=== PATIENT | female | born 1960 | race Hispanic/Latino ===

== ENCOUNTER 2017-03-18 22:59 | Emergency (ER) | payer BC, SELFPAY ==
[2017-03-18 23:26] LABS: Bilirubin Negative (Negative); Blood, Urine Negative (Negative); Glucose, Urine (Dipstick) Negative (Negative); Ketone, Urine Negative (Negative); Nitrite Negative (Negative); Protein, Urine (Dipstick) Negative (Neg-Trace)
[2017-03-18 23:27] LABS: Bacteria/HPF 1+ HPF (None Seen); Hyaline Casts/LPF 0-3 HYALINE CAST LPF (0-3 Hyaline)
[2017-03-18 23:30] LABS: #Eosinphils 0.5 thou/uL (0.0-0.7); #Lymphocytes 1.5 thou/uL (1.20-3.40); #Monocytes 0.5 thou/uL (0.11-0.59); #Neutrophils 6.9 thou/uL (1.40-6.50); %Basophils 0.4 % (0.0-1.0); %Eosinophils 4.9 % (0.0-10.0); %Lymphocytes 16.1 % (21.0-51.0); %Monocytes 5.7 % (0.0-10.0); Hematocrit 36.4 % (36.0-47.0); Mean Platelet Volume 7.9 fL (7.4-10.4); Red Blood Cell (RBC) Count 4.08 mill/uL (4.20-5.40); White Blood Cell (WBC) Count 9.5 thou/uL (4.8-10.8)
[2017-03-18 23:51] LABS: ALT (SGPT) 14 U/L (8-55); AST (SGOT) 18 U/L (5-34); Alkaline Phosphatase 67 U/L (40-150); Anion Gap 13 mmol/L (10-20); BUN (Urea Nitrogen) 12 mg/dL (9.8-20.1); Bilirubin, Total 0.5 mg/dL (0.2-1.2); Calc. Creatinine Clearance 0 mL/min (70-130); Calcium 9.2 mg/dL (7.8-10.44); Carbon Dioxide 27 mmol/L (22-29); Chloride 103 mmol/L (98-107); Estimated GFR-MDRD 79; Globulin 3.3 g/dL (2.4-3.5); Lipase 9 U/L (8-78); Protein, Total 7.3 g/dL (6.0-8.3)
[2017-03-19] MEDS ORDERED: Phenazopyridine HCl 97.5 MG TABLET PO SCH (02:15)
[2017-03-19] MEDS ORDERED: Phenazopyridine HCl 97.5 MG TABLET ONE (02:21)
== END 2017-03-19 02:29 | disposition home or self-care (01) ==
LOC: ERS 22:59
DX: N39.0 Urinary tract infection, site not specified (principal); I10 Essential (primary) hypertension
CPT/HCPCS: 36415; 80053; 81003; 81015; 83690; 85025; 99283

== ENCOUNTER 2017-07-30 14:03 | Inpatient (IN) | payer BC, SELFPAY ==
[2017-07-30 14:33] LABS: #Lymphocytes 0.7 thou/uL (1.20-3.40); #Monocytes 0.2 thou/uL (0.11-0.59); #Neutrophils 9.2 thou/uL (1.40-6.50); %Eosinophils 0.2 % (0.0-10.0); %Lymphocytes 7.1 % (21.0-51.0); %Monocytes 2.2 % (0.0-10.0); %Neutrophils 90.5 % (42.0-75.0); Hemoglobin 12.2 g/dL (12.0-16.0); Mean Corpuscular HGB CONC 32.1 g/dL (32.0-36.0); Mean Corpuscular Hemoglobin 28.8 pg (27.0-31.0); Mean Corpuscular Volume 89.6 fl (81.0-99.0); Mean Platelet Volume 8.2 fL (7.4-10.4); Platelet Count 277 thou/uL (130-400); RBC Distribution Width 11.9 % (11.5-14.5); Red Blood Cell (RBC) Count 4.24 mill/uL (4.20-5.40); White Blood Cell (WBC) Count 10.1 thou/uL (4.8-10.8)
[2017-07-30 14:54] LABS: ALT (SGPT) 14 U/L (8-55); AST (SGOT) 18 U/L (5-34); Albumin 4.1 g/dL (3.5-5.0); Alkaline Phosphatase 65 U/L (40-150); Anion Gap 12 mmol/L (10-20); BUN (Urea Nitrogen) 12 mg/dL (9.8-20.1); Bilirubin, Total 0.7 mg/dL (0.2-1.2); Calc. Creatinine Clearance 0 mL/min (70-130); Calcium 9.3 mg/dL (7.8-10.44); Carbon Dioxide 27 mmol/L (22-29); Chloride 100 mmol/L (98-107); Estimated GFR-MDRD Greater than 90; Globulin 2.9 g/dL (2.4-3.5); Glucose 112 mg/dL (70-105); Potassium 3.9 mmol/L (3.5-5.1); Sodium 135 mmol/L (136-145)
[2017-07-30 15:49] LABS: Bilirubin Negative (Negative); Blood, Urine Negative (Negative); Clarity CLEAR (Clear); Glucose, Urine (Dipstick) Negative (Negative); Leukocyte Negative (Negative); Nitrite Negative (Negative); Protein, Urine (Dipstick) Negative (Neg-Trace); Specific Gravity, Urine 1.014 (1.002-1.036)
[2017-07-30] MEDS ORDERED: ISOVUE-370 76%-LOCM 1 ML ONE (16:40)
--- NOTE | 2017-07-30 21:15 | CT ---
CT OF ABDOMEN AND PELVIS PERFORMED WITH INTRAVENOUS CONTRAST ENHANCEMENT: 07/30/17 HISTORY: Right lower quadrant abdomen pain. The lung bases are clear. There is a large hiatal hernia present. The liver, spleen, and pancreas regions appear unremarkable. Gallbladder has been removed. Right and left adrenal glands and right and left kidneys are normal in size. There is no significant periaortic or mesenteric adenopathy. CT OF PELVIS PERFORMED WITH CONTRAST ENHANCEMENT: The appendix is enlarged. There is some focally dilated small bowel adjacent to this area. This is pr obably related to some localized ileus type effect. There is trace free fluid in the cul-de-sac. Ther e is no abscess formation. IMPRESSION: CT findings compatible with appendicitis. There is some trace free fluid in the cul-de-sac region. POS: [facility]
[2017-07-30] MEDS ORDERED: Ampicillin/Sulbactam 3 GM in Sodium Chloride 0.9% 100 ML IVPB SCH (23:00)
[2017-07-31 00:19] VITALS: BMI 37.1
[2017-07-31] MEDS ORDERED: Ondansetron HCl/PF 4 MG/2 ML Vial IVP PRN ×3 (00:19→12:33)
[2017-07-31] MEDS ORDERED: Ondansetron ODT 4 MG TAB SL PRN (00:19)
[2017-07-31] MEDS: Sodium Chloride 0.45% 1,000 ML IV SCH ×2 (00:30→15:51)
[2017-07-31] MEDS: Fentanyl 100 MCG/2 ML VIAL SLOW IVP PRN ×2 (01:14→08:35)
--- NOTE | 2017-07-31 02:43 | CON-2 ---
DATE OF CONSULTATION: 07/31/2017 CODE STATUS: FULL CODE. PRIMARY CARE PHYSICIAN: Dr. Rosales Beyer. ATTENDING: Dr. Awan. RESIDENT: Dr. Rosales Newman. CHIEF COMPLAINT: Right lower quadrant abdominal pain. HISTORY OF PRESENT ILLNESS: This is a Turkish speaking 57-year-old female who initially presented to the ER earlier tonight for evaluation of worsening right lower quadrant abdominal pain that started at 0300 earlier that morning on 07/30/2017 with associated nausea and vomiting, emesis x1. While in the ER, patient was found to be afebrile without a white count. CT abdomen and pelvis was obtained s howing inflammation of the appendix consistent with appendicitis. At this time, she was started on U nasyn, given 2 mg morphine and 1 liter normal saline before being admitted by General Surgery with pl ans for appendectomy tomorrow morning. Patient does have a past medical history of arthritis and hyp ertension, which per records showing a systolic ranging 110s to 120s/60s to 80s over her last multipl e clinic visits on lisinopril/HCTZ 20/25 mg, respectively. Patient denies any headache, blurry visio n, chest pain, shortness of breath. She is unsure if she took her blood pressure medication this mor radha secondary to the abdominal pain associated nausea, vomiting. In the ER, patient received 3 gram s Unasyn, 2 mg morphine, and 1 liter normal saline. PAST MEDICAL HISTORY: 1. Hypertension. 2. Urge incontinence. 3. Obesity. 4. Arthritis. PAST SURGICAL HISTORY: 1. Cholecystectomy. 2. Hysterectomy. 3. Bilateral tubal ligation. ALLERGIES: No known drug allergies. MEDICATIONS: 1. Lisinopril/HCTZ 20/25 mg p.o. q. day. 2. Aspirin 81 mg p.o. q. day. FAMILY HISTORY: Noncontributory. SOCIAL HISTORY: Patient denies any tobacco, alcohol, or IV drug use. REVIEW OF SYSTEMS: General: Denies any fevers or chills. Eyes: Denies any eye pain. ENT: Denies any sore throat. Respiratory: Denies any cough, shortness breath. Cardiovascular: Denies any dov st pain. GI: Endorses nausea, vomiting, and abdominal pain. See HPI. Genitourinary: Endorses inc ontinence. See past medical history. Skin: Denies any rashes. Musculoskeletal: Denies any stiffn ess. Endorses arthritis. Neurologic: Denies any weakness, syncope. Psychiatric: Denies anxiety, depression. PHYSICAL EXAMINATION: VITAL SIGNS: Blood pressure 152/84, pulse 63, respiratory rate 18, T-max 98.3 degrees Fahrenheit, pu lse ox 98% on room air, weight current 83.5 kilos. GENERAL: Alert and oriented x3. NAD. Obese, appropriately interactive. HEENT: PERRLA, EOMI. Conjunctivae within normal limits. ENT: Nasal mucosa and oropharynx within normal limits. NECK: Supple, no cervical lymphadenopathy, no thyromegaly, no bruits. HEART: Regular. No murmur, no gallops, 2+ radial and pedal pulses bilaterally. RESPIRATORY: Normal respiratory effort, no retractions. Clear to auscultation bilaterally. SKIN: Warm, dry, and intact. No cyanosis. No lesions. ABDOMEN: Soft, nontender to palpation diffusely greater right lower quadrant without guarding or carolynn ound tenderness. Bowel sounds normoactive. No masses or distention. EXTREMITIES: No clubbing, no cyanosis, edema. MUSCULOSKELETAL: Structure within normal limits. Tone within normal limits, 5/5 strength, full rang e of motion. NEUROLOGICAL: No focal deficits. Sensation within normal limits. Cranial nerves II-XII intact bila terally. PSYCH: Appropriate mood and affect. LABORATORY DATA: White blood cell 10.1, hemoglobin 12.2, hematocrit 38.0, platelets 277. Sodium 135 , potassium 3.9, chloride 100, bicarbonate 27, BUN 12, creatinine 0.66, glucose 112. Albumin 4.1, to luan protein 7.0, total bilirubin 0.7, calcium 9.2, AST 18, ALT 14, alkaline phosphatase 65, lipase 4. IMAGING: CT abdomen and pelvis showing inflammation of the appendix consistent with appendicitis. ASSESSMENT AND PLAN: A 57-year-old female with: 1. Acute appendicitis. - Patient started on Unasyn. Continue this per General Surgery with plans for appendectomy in the orning. Continue on n.p.o. status until this time. - Pain control per General Surgery. 2. Essential hypertension. - Patient very well controlled on home blood pressure medication regimen of lisinopril/HCTZ slightly elevated pressures asymptomatic. Likely, secondary to not taking medication this morning as well as the pain associated with: 1. Restart home medications. 2. Arthritis. - Patient taking ibuprofen at home for this per clinic notes. We will plan on patient restarting th is once postop pain medications per general surgeon have been discontinued. DISPOSITION AND LENGTH OF HOSPITAL STAY: Likely less than 2 midnights. Pending postop recovery. Melanie harris per General Surgery. History and physical exam as well as management for this consultation was discussed with Dr. Awan.
[2017-07-31] MEDS: Ampicillin/Sulbactam 3 GM in Sodium Chloride 0.9% 100 ML IVPB SCH ×2 (07:28→13:00)
[2017-07-31] MEDS ORDERED: cefOXitin 2 GM in Sodium Chloride 0.9% 100 ML IVPB SCH (07:45)
--- NOTE | 2017-07-31 07:45 | HP ---
CHIEF COMPLAINT: Right lower quadrant abdominal pain. HISTORY OF PRESENT ILLNESS: This is a 57-year-old female with a 24-hour history of right-sided abdom inal pain associated with nausea, vomiting, no fever. PAST MEDICAL HISTORY: Hypertension. PAST SURGICAL HISTORY: Hysterectomy. MEDICATIONS: Lisinopril. ALLERGIES: No known drug allergies. SOCIAL HISTORY: She is . She works in the kitchen of a restaurant. No tobacco or alcohol. FAMILY HISTORY: Noncontributory. PHYSICAL EXAMINATION: VITAL SIGNS: Temperature 99.1, pulse 67, blood pressure 119/75. GENERAL: She is an obese female, lying still. HEENT: Unremarkable. LUNGS: Clear. HEART: Regular rate and rhythm. ABDOMEN: Tender to percussion in the right lower quadrant, no palpable masses. EXTREMITIES: Unremarkable. LABORATORY AND X-RAY FINDINGS: White count 10.1, H and H 12 and 38, platelet count 277. Electrolyte s fine. LFTs normal. CT scan shows appendicitis. ASSESSMENT: Acute appendicitis. PLAN: Laparoscopic appendectomy. CONSENT: I have discussed the planned procedure as well as risk of bleeding, infection, injury to ileana wel, bladder, need to open. She understands and gives informed consent.
[2017-07-31] MEDS ORDERED: cefOXitin 2 GM, Syringe 1 ML in Sterile Water 10 ML SLOW IVP SCH (08:00)
[2017-07-31] MEDS ORDERED: Bupivacaine 0.25% HCL 30 ML VIAL ONE (10:52)
[2017-07-31] MEDS ORDERED: Fentanyl 100 MCG/2 ML VIAL ONE (11:13)
[2017-07-31] MEDS ORDERED: HYDROmorphone 0.5 MG/0.5 ML SYRINGE ONE (11:13)
[2017-07-31] MEDS ORDERED: Promethazine HCl 25 MG/ML VIAL IM PRN ×2 (12:24→12:33)
[2017-07-31] MEDS ORDERED: Morphine 5 MG/ML SYRINGE SLOW IVP PRN (12:24)
[2017-07-31] MEDS ORDERED: HYDROcodone/Acetaminophen 10/325 mg Tablet PO PRN ×2 (12:24)
[2017-07-31] MEDS ORDERED: Dextrose 5% in Water 1,000 ML IV PRN (12:24)
[2017-07-31] MEDS ORDERED: hydrALAZINE 20 MG/ML VIAL SLOW IVP PRN (12:24)
[2017-07-31] MEDS ORDERED: Dextrose 50% Abboject 50 ML SYRINGE SLOW IVP PRN (12:24)
[2017-07-31] MEDS ORDERED: Promethazine HCl 25 MG/ML VIAL SLOW IVP PRN (12:33)
[2017-07-31] MEDS ORDERED: HYDROmorphone 2 MG/ML VIAL SLOW IVP PRN (12:33)
[2017-07-31] MEDS ORDERED: Succinylcholine Chloride 20 MG/ML 10 ml SYRINGE FS ONE (14:34)
[2017-07-31] MEDS ORDERED: Ketorolac Tromethamine 30 MG/ML VIAL ONE (14:34)
[2017-07-31] MEDS ORDERED: ePHEDrine/0.9% NaCl/PF SYRINGE 50 mg/10 ml ONE (14:34)
[2017-07-31] MEDS ORDERED: Ondansetron HCl/PF 4 MG/2 ML Vial ONE (14:34)
[2017-07-31] MEDS ORDERED: Dexamethasone 20 MG/5 ML VIAL ONE (14:34)
[2017-07-31] MEDS ORDERED: Propofol 200 MG/20 ML VIAL ONE (14:34)
[2017-07-31] MEDS ORDERED: Glycopyrrolate 0.2 MG/ML 5 ML SYRINGE ONE (14:34)
[2017-07-31] MEDS ORDERED: PHENYLEPHRINE-NS 100 MCG/ML 10 ML SYRINGE ONE (14:34)
[2017-07-31] MEDS ORDERED: Lidocaine 1% PF 5 ML VIAL ONE (14:34)
[2017-07-31] MEDS: Lisinopril/Hydrochlorothiazide 20/25 mg Tablet PO SCH (15:01)
--- NOTE | 2017-07-31 15:17 | OP ---
PREOPERATIVE DIAGNOSIS: Acute appendicitis. SURGEON: Jeff Mcdonald M.D. PROCEDURE PERFORMED: Laparoscopic appendectomy and drainage of periappendiceal abscess. INDICATIONS: This is a 57-year-old female who presented with a 24-hour history of right lower quadra nt abdominal pain associated with nausea and vomiting. No fever. She had a CT scan that showed appe ndicitis. FINDINGS: Acute appendicitis, ruptured with periappendiceal abscess. PROCEDURE IN DETAIL: After informed consent was obtained, the patient was taken to the operating enoch m and given general endotracheal anesthesia. She was placed in the supine position. Her abdomen was prepped and draped in the usual fashion. Local anesthesia infiltrated subcutaneously and deep, and a subumbilical incision was performed. The subcu divided sharply. The fascia grasped and two stay s utures of 0 Vicryl placed to either side of midline. Midline incised. Digital palpation revealed no local adhesions. A blunt 10/12 mm trocar inserted. Pneumoperitoneum was created to a pressure of 1 5 mmHg. A 0 degree laparoscope inserted. Under direct vision, two 5-mm ports were placed, one supra pubic and one right lateral abdomen. The appendix was grasped and there was a collection of purulent fluid around it. This was suctioned and some of it was retained for culture. The mesoappendix was divided utilizing the LigaSure. The base of the appendix was then divided utilizing the linear 45 mm white load stapler. The appendix was placed in an Endosac and removed from the abdomen in the Endos ac. Hemostasis was assured. The pelvis was thoroughly irrigated and irrigation fluid removed. The periappendiceal abscess was completely drained. Hemostasis assured. A drain was placed and brought through a separate stab wound in the suprapubic area, placed in the pelvis and along the right side. Hemostasis was assured. Trocars and retractors removed. The fascia closed with interrupted 0 Vicry l sutures. Skin closed with interrupted 4-0 Rapide. Dermabond applied. The patient tolerated the p rocedure well and transferred to recovery in good condition. Sponge and needle count verified [facility] t x2.
[2017-07-31] MEDS: Piperacillin/Tazobactam 3.375 GM in Sodium Chloride 0.9% 100 ML IVPB SCH (17:53)
[2017-07-31] MEDS: Ketorolac Tromethamine 30 MG/ML VIAL IVP SCH (17:53)
[2017-07-31] MEDS: D5 1/2 NS w/20 mEq KCL 1,000 ML IV SCH (18:02)
[2017-07-31] MEDS: Famotidine 20 MG TAB PO SCH (20:01)
[2017-07-31] MEDS: Famotidine/PF 20 mg/2ml Vial SLOW IVP SCH (21:31)
[2017-08-01] MEDS: Piperacillin/Tazobactam 3.375 GM in Sodium Chloride 0.9% 100 ML IVPB SCH ×3 (00:57→12:45)
[2017-08-01] MEDS: Ketorolac Tromethamine 30 MG/ML VIAL IVP SCH ×3 (00:57→12:46)
[2017-08-01] MEDS: D5 1/2 NS w/20 mEq KCL 1,000 ML IV SCH (04:41)
[2017-08-01 04:51] LABS: #Lymphocytes 0.6 thou/uL (1.20-3.40); #Monocytes 0.5 thou/uL (0.11-0.59); #Neutrophils 7.3 thou/uL (1.40-6.50); %Basophils 0.3 % (0.0-1.0); %Eosinophils 0.1 % (0.0-10.0); %Lymphocytes 7.3 % (21.0-51.0); %Monocytes 6.4 % (0.0-10.0); %Neutrophils 85.9 % (42.0-75.0); Hemoglobin 10.4 g/dL (12.0-16.0); Mean Corpuscular HGB CONC 32.6 g/dL (32.0-36.0); Mean Corpuscular Hemoglobin 29.3 pg (27.0-31.0); Mean Corpuscular Volume 89.9 fl (81.0-99.0); Mean Platelet Volume 8.8 fL (7.4-10.4); Platelet Count 224 thou/uL (130-400); RBC Distribution Width 11.9 % (11.5-14.5); Red Blood Cell (RBC) Count 3.56 mill/uL (4.20-5.40); White Blood Cell (WBC) Count 8.5 thou/uL (4.8-10.8)
[2017-08-01 04:59] LABS: Anion Gap 10 mmol/L (10-20); BUN (Urea Nitrogen) 8 mg/dL (9.8-20.1); Calc. Creatinine Clearance 121 mL/min (70-130); Calcium 8.5 mg/dL (7.8-10.44); Carbon Dioxide 26 mmol/L (22-29); Chloride 106 mmol/L (98-107); Estimated GFR-MDRD 90; Glucose 167 mg/dL (70-105); Sodium 138 mmol/L (136-145)
[2017-08-01] MEDS: Famotidine/PF 20 mg/2ml Vial SLOW IVP SCH (08:43)
[2017-08-01] MEDS: Famotidine 20 MG TAB PO SCH (08:43)
[2017-08-01] MEDS: Lisinopril/Hydrochlorothiazide 20/25 mg Tablet PO SCH (08:44)
[2017-08-01] MEDS ORDERED: Enoxaparin Sodium 40 MG/0.4 ML SYRINGE SC SCH (09:00)
[2017-08-01 12:28] VITALS: BP 121/75; TEMP 98
--- NOTE | 2017-08-01 21:06 | DIS ---
DISCHARGE DIAGNOSIS: Acute appendicitis with periappendiceal abscess. PROCEDURES DURING ADMISSION: Laparoscopic appendectomy and drainage of abscess. HOSPITAL COURSE: Patient was admitted, taken to the operating room after given IV antibiotics. She underwent a laparoscopic appendectomy. She was found to have a locally ruptured appendicitis with pe riappendiceal abscess. A drain was placed. Postoperatively, she has done well. Minimal output on t he drain. She is afebrile, tolerating liquids. She is discharged home afebrile on hydrocodone, Zofr an, and doxycycline. She will follow up with me in 2 weeks.
== END 2017-08-01 14:25 | disposition home or self-care (01) | DRG 340 ==
LOC: ERS 14:03 → OBSVTOIN 23:58 → SURG A 23:58
PROVIDERS: ADMIT Surgery; ATTEND Surgery
PROC: 0DTJ4ZZ Resection of Appendix, Percutaneous Endoscopic Approach (ICD-10-PCS; principal; 2017-07-30)
PROC: 0D9J4ZZ Drainage of Appendix, Percutaneous Endoscopic Approach (ICD-10-PCS; 2017-07-30)
DX: K35.2 Acute appendicitis with generalized peritonitis (principal); E66.9 Obesity, unspecified; I10 Essential (primary) hypertension; K35.3 Acute appendicitis with localized peritonitis; M19.90 Unspecified osteoarthritis, unspecified site; Z79.82 Long term (current) use of aspirin
CPT/HCPCS: 36415; 74177; 80048; 80053; 81003; 83690; 83735; 85025; 87070; 87077; 87086; 87186; 87205; 88304; 96361; 96365; 96375; J2270; A4216; J0295; J0694; J1100; J1170; J1650; J1885; J2001; J2405; J2543; J2704; J3010; J7050; S0020; S0028

== ENCOUNTER 2017-10-11 10:17 | Outpatient (CLI) | payer OTHER ==
--- NOTE | 2017-10-18 13:54 | MMO ---
MAMMOGRAM DIGITAL SCREENING BILATERAL: DATE: 10/11/17 HISTORY: 57-year-old female for routine bilateral screening mammogram. COMPARISON: 03/15/15, 03/16/16. TECHNIQUE: Digital mammographic views. Computer-aided detection (CAD) utilized. FINDINGS: There are scattered areas of fibroglandular density. There is no evidence of suspicious mass, suspicious calcifications, or architectural distortion. IMPRESSION: 1. BIRADS 1 - Negative. 2. Recommendation: routine bilateral annual screening mammogram (unless the patient develops suspici ous clinical findings that would warrant earlier imaging follow up). areli [] POS: [facility]
== END 2017-10-11 10:18 | disposition home or self-care (01) ==
LOC: SCSMAMMO 10:17
PROVIDERS: ATTEND Emergency Medicine
DX: Z12.31 Encounter for screening mammogram for malignant neoplasm of breast (principal)
CPT/HCPCS: 77067

== ENCOUNTER 2018-10-12 09:09 | Outpatient (CLI) | payer OTHER ==
--- NOTE | 2018-10-12 12:03 | MMO ---
Bilateral MAMMO Bilat Screen DDI. CLINICAL HISTORY: Patient is 58 years old and is seen for screening. The patient has the following family history of breast cancer: cousin female, at age 52. The patient has no personal history of cancer. VIEWS: The views performed were: bilateral craniocaudal and bilateral mediolateral oblique. FILMS COMPARED: The present examination has been compared to prior imaging studies performed at [facility] on 10/11/2017, and at [facility] on 03/06/2005, 04/07/2007, 04/13/2008, 05/28/2009, 06/27/2010, 08/03/2011 and 08/05/2012. This study has been interpreted with the assistance of computer-aided detection. MAMMOGRAM FINDINGS: The breasts are heterogeneously dense, which could obscure a lesion on mammography. Finding 1: There are stable benign appearing densities seen in both breasts. Finding 2: There are stable benign appearing calcifications seen in both breasts. There are no suspicious masses, suspicious calcifications, or new areas of architectural distortion. IMPRESSION: THERE IS NO MAMMOGRAPHIC EVIDENCE OF MALIGNANCY. A ROUTINE FOLLOW-UP MAMMOGRAM IN 1 YEAR IS RECOMMENDED. ACR BI-RADS Category 2 - Benign finding MAMMOGRAPHY NOTE: 1. A negative mammogram report should not delay a biopsy if a dominant of clinically suspicious mass is present. 2. Approximately 10% to 15% of breast cancers are not detected by mammography. 3. Adenosis and dense breasts may obscure an underlying neoplasm.
== END 2018-10-12 09:10 | disposition home or self-care (01) ==
LOC: SCSMAMMO 09:09
PROVIDERS: ATTEND Emergency Medicine
DX: Z12.31 Encounter for screening mammogram for malignant neoplasm of breast (principal); Z80.3 Family history of malignant neoplasm of breast
CPT/HCPCS: 77067

== ENCOUNTER 2018-12-10 14:46 | Emergency (ER) | payer OTHER ==
[2018-12-10] MEDS ORDERED: Ketorolac Tromethamine 30 MG/ML VIAL ONE (15:33)
--- NOTE | 2018-12-10 15:40 | RAD ---
EXAM: XR Hip Lt 2-3 View PROVIDED CLINICAL HISTORY: Pain FINDINGS: Evaluation is limited by patient body habitus. There is no evidence for fracture or other acute osseo us abnormality. Alignment appears anatomic. Joint spaces appear preserved. IMPRESSION: No evidence for an acute osseous abnormality. If there is persistent clinical concern, conservative m anagement and follow-up imaging advised.
--- NOTE | 2018-12-10 15:41 | RAD ---
EXAM: XR Knee Lt 4 View STANDARD PROVIDED CLINICAL HISTORY: Pain FINDINGS: There is no evidence for fracture or other acute osseous abnormality. Alignment appears anatomic. Kassandra nt spaces appear preserved. Osteophyte formation is seen at the medial femorotibial joint. IMPRESSION: No evidence for an acute osseous abnormality. If there is persistent clinical concern, conservative m anagement and follow-up imaging advised.
== END 2018-12-10 16:26 | disposition home or self-care (01) ==
LOC: ERS 14:46
DX: M25.562 Pain in left knee (principal); M25.552 Pain in left hip; I10 Essential (primary) hypertension; F41.9 Anxiety disorder, unspecified; Z79.899 Other long term (current) drug therapy; W19.XXXA Unspecified fall, initial encounter; Y92.512 Supermarket, store or market as the place of occurrence of the external cause
CPT/HCPCS: 96372; J1885

== ENCOUNTER 2019-10-19 10:48 | Outpatient (CLI) | payer OTHER ==
--- NOTE | 2019-10-19 11:26 | MMO ---
Bilateral MAMMO Bilat Screen DDI+PING. CLINICAL HISTORY: Patient is 59 years old and is seen for screening. The patient has the following family history of breast cancer: cousin female, at age 52. The patient has no personal history of cancer. VIEWS: The views performed were: bilateral craniocaudal; bilateral craniocaudal with tomosynthesis; and bilateral mediolateral oblique with tomosynthesis. FILMS COMPARED: The present examination has been compared to prior imaging studies performed at [facility] on 10/11/2017 and 10/12/2018. This study has been interpreted with the assistance of computer-aided detection. MAMMOGRAM FINDINGS: Finding 1: There are stable benign appearing densities seen in both breasts. Finding 2: There are stable benign appearing calcifications seen in both breasts. There are no suspicious masses, suspicious calcifications, or new areas of architectural distortion. IMPRESSION: THERE IS NO MAMMOGRAPHIC EVIDENCE OF MALIGNANCY. A ROUTINE FOLLOW-UP MAMMOGRAM IN 1 YEAR IS RECOMMENDED. THE RESULTS OF THIS EXAM WERE SENT TO THE PATIENT. ACR BI-RADS Category 2 - Benign finding MAMMOGRAPHY NOTE: 1. A negative mammogram report should not delay a biopsy if a dominant of clinically suspicious mass is present. 2. Approximately 10% to 15% of breast cancers are not detected by mammography. 3. Adenosis and dense breasts may obscure an underlying neoplasm. Reported by: Eduardo STEVE Electonically Signed: [id number]
== END 2019-10-19 10:49 | disposition home or self-care (01) ==
LOC: BICMAMMO 10:48
PROVIDERS: ATTEND Emergency Medicine
DX: Z12.31 Encounter for screening mammogram for malignant neoplasm of breast (principal); Z80.3 Family history of malignant neoplasm of breast
CPT/HCPCS: 77063; 77067

== ENCOUNTER 2021-08-26 08:48 | Outpatient (CLI) | payer OTHER | END 2021-08-26 08:49 | disposition home or self-care (01) | LOC: BICMAMMO 08:48 | PROVIDERS: ATTEND Emergency Medicine | DX: Z12.31 Encounter for screening mammogram for malignant neoplasm of breast (principal); Z80.3 Family history of malignant neoplasm of breast | CPT/HCPCS: 77063; 77067 ==

== ENCOUNTER 2024-06-01 07:30 | Outpatient (CLI) | payer OTHER | END 2024-06-01 07:31 | disposition home or self-care (01) | LOC: BICMRI 07:30 | PROVIDERS: ATTEND Emergency Medicine | DX: M54.32 Sciatica, left side (principal); M48.061 Spinal stenosis, lumbar region without neurogenic claudication; M48.07 Spinal stenosis, lumbosacral region; M47.817 Spondylosis without myelopathy or radiculopathy, lumbosacral region; M47.814 Spondylosis without myelopathy or radiculopathy, thoracic region; M48.04 Spinal stenosis, thoracic region; M47.816 Spondylosis without myelopathy or radiculopathy, lumbar region | CPT/HCPCS: 72148 ==

== ENCOUNTER 2025-01-08 06:59 | Inpatient (IN) | payer OTHER ==
[2025-01-08] MEDS ORDERED: Thrombin 5000 UNITS/5 ML VIAL ONE (07:26)
[2025-01-08] MEDS ORDERED: fentaNYL PF 100 MCG/2 ML SYRINGE ONE (07:35)
[2025-01-08] MEDS ORDERED: CEFAZOLIN 2 GM VIAL ONE (08:00)
[2025-01-08] MEDS ORDERED: Lidocaine 1% PF 5 ML VIAL ONE (08:33)
[2025-01-08] MEDS ORDERED: Rocuronium Bromide 10 MG/ML (10ML VIAL) ONE (08:33)
[2025-01-08] MEDS ORDERED: Albuterol HFA (OR) 200 PUFF INH ONE (08:33)
[2025-01-08] MEDS ORDERED: PROPOFOL 200 MG/20 ML VIAL ONE (08:33)
[2025-01-08] MEDS ORDERED: Ketamine In 0.9 % NaCl 50 MG/5 ML SYRINGE ONE (08:46)
[2025-01-08] MEDS ORDERED: Ondansetron PF 4 MG/2 ML Vial ONE (08:50)
[2025-01-08] MEDS ORDERED: SUGAMMADEX SODIUM 200 MG/2 ML VIAL ONE ×2 (08:50→10:10)
[2025-01-08] MEDS ORDERED: PROPOFOL 20 ML ONE (09:27)
[2025-01-08] MEDS ORDERED: HYDROmorphone 2 MG/ML VIAL ONE (09:36)
[2025-01-08] MEDS ORDERED: HYDROcodone/Acetaminophen 5/325 mg Tablet ONE (12:05)
[2025-01-08] MEDS ORDERED: diphenhydrAMINE 50 MG/ML VIAL IVP PRN (13:32)
[2025-01-08] MEDS: metFORMIN 500 MG TAB PO SCH (16:39)
[2025-01-08] MEDS: Ketorolac Tromethamine 30 MG (1 mL) VIAL IVP SCH (16:39)
[2025-01-08] MEDS: Ondansetron PF 4 MG/2 ML Vial IVP PRN (18:25)
[2025-01-08 18:32] VITALS: BMI 42.0
[2025-01-09] MEDS: Lisinopril 20 MG TAB PO SCH (08:55)
[2025-01-09] MEDS: HYDROcodone/Acetaminophen 10/325 mg Tablet PO PRN ×2 (12:23→23:25)
[2025-01-11] MEDS: Acetaminophen 325 MG TAB PO PRN (09:00)
[2025-01-11] MEDS: Cyclobenzaprine 10 MG TAB PO PRN (23:43)
[2025-01-14] MEDS: Milk Of Magnesia 30 ML UDCUP PO PRN (05:31)
[2025-01-15] MEDS: Fleet Saline Enema 133 ML BOT PR PRN (15:47)
[2025-01-15] MEDS: Naloxegol 12.5 MG TAB PO SCH (16:52)
[2025-01-15 16:55] VITALS: BP 105/71; TEMP 98.5
[2025-01-16] MEDS ORDERED: Naloxegol 12.5 MG TAB PO SCH (07:30)
== END 2025-01-15 18:00 | DRG 451 ==
LOC: SDC 06:59 → T4-B 16:06 → OBSVTOIN 01-09 11:02
PROVIDERS: ADMIT Neurological Surgery; ATTEND Neurological Surgery
PROC: 0SG0071 Fusion of Lumbar Vertebral Joint with Autologous Tissue Substitute, Posterior Approach, Posterior Column, Open Approach (ICD-10-PCS; principal; 2025-01-08)
PROC: 01NB0ZZ Release Lumbar Nerve, Open Approach (ICD-10-PCS; 2025-01-08)
DX: M48.062 Spinal stenosis, lumbar region with neurogenic claudication (principal); K59.00 Constipation, unspecified; Z79.899 Other long term (current) drug therapy; I10 Essential (primary) hypertension; E11.9 Type 2 diabetes mellitus without complications
CPT/HCPCS: 36416; 96374; 96375; 96376; C1713; C1889; G0378; J1100; J1171; J1885; J2250; J2270; J2405; J2704; J3010; J3373; J3490; J7030; Q0169

== ENCOUNTER 2025-01-20 12:24 | Inpatient (IN) | payer OTHER ==
[2025-01-20 12:56] LABS: #Basophils 0.04 10x3/uL (0.0-0.2); #Eosinophils Less than 0.03 10x3/uL (0.0-0.7); #Monocytes 0.86 10x3/uL (0.11-0.59); #Neutrophils 13.38 10x3/uL (1.40-6.50); %Basophils 0.3 % (0.0-1.0); %Eosinophils 0.1 % (0.0-10.0); %Lymphocytes 4.9 % (21.0-51.0); %Monocytes 5.7 % (0.0-10.0); %Neutrophils 88.3 % (42.0-75.0); Hematocrit 32.0 % (36.0-47.0); Hemoglobin 10.9 g/dL (12.0-16.0); Mean Corpuscular Hemoglobin 26.7 pg (27.0-31.0); Mean Corpuscular Volume 78.4 fL (78.0-98.0); Platelet Count 320 10x3/uL (130-400); Red Blood Cell (RBC) Count 4.08 mill/uL (4.20-5.40); White Blood Cell (WBC) Count 15.14 10x3/uL (4.8-10.8)
[2025-01-20] MEDS ORDERED: Acetaminophen 500 MG TAB ONE (12:59)
[2025-01-20] MEDS ORDERED: Cefepime 2 GM VIAL ONE (12:59)
[2025-01-20 13:19] LABS: ALT (SGPT) 16 U/L (Less than 34); AST (SGOT) 17 U/L (11-34); Albumin 3.1 g/dL (3.1-4.5); Alkaline Phosphatase 69 U/L (40-110); Anion Gap 14 mmol/L (10-20); BUN (Urea Nitrogen) 10 mg/dL (9.8-20.1); Bilirubin, Total 0.5 mg/dL (0.3-1.2); Calc. Creatinine Clearance 0 mL/min (70-130); Calcium 8.2 mg/dL (7.8-10.44); Carbon Dioxide 23 mmol/L (23-31); Chloride 87 mmol/L (98-107); Globulin 2.9 g/dL (2.4-3.5); Glucose 130 mg/dL (80-115); Potassium 3.9 mmol/L (3.5-5.1); Sodium 120 mmol/L (136-145)
[2025-01-20] MEDS ORDERED: Mag-Al 1200 mg/1200 mg/30 ML UDCUP PO PRN (13:50)
[2025-01-20] MEDS ORDERED: Milk Of Magnesia 30 ML UDCUP PO PRN (13:50)
[2025-01-20] MEDS: VANCOMYCIN 1.75 GM/350 ML Premix BAG IVPB SCH (16:33)
[2025-01-20] MEDS: metFORMIN 500 MG TAB PO SCH (16:40)
[2025-01-20] MEDS: HYDROcodone/Acetaminophen 10/325 mg Tablet PO PRN (23:23)
[2025-01-20 23:31] LABS: Albumin 2.9 g/dL (3.1-4.5); Anion Gap 12 mmol/L (10-20); BUN (Urea Nitrogen) 11 mg/dL (9.8-20.1); BUN/Creatinine Ratio 18.03; Calc. Creatinine Clearance 133 mL/min (70-130); Calcium 7.9 mg/dL (7.8-10.44); Carbon Dioxide 24 mmol/L (23-31); Chloride 92 mmol/L (98-107); Glucose 117 mg/dL (80-115); Potassium 3.6 mmol/L (3.5-5.1); Sodium 124 mmol/L (136-145)
[2025-01-20] MEDS: Ondansetron PF 4 MG/2 ML Vial IVP PRN (23:32)
[2025-01-21 00:13] LABS: Osmolality, Urine 255 mOsm/kg (50-1200)
[2025-01-21] MEDS ORDERED: Dextrose 50% Abboject 50 ML SYRINGE SLOW IVP PRN (00:49)
[2025-01-21] MEDS ORDERED: Glucagon 1 MG/ML KIT IM PRN (00:49)
[2025-01-21 03:50] LABS: #Basophils 0.05 10x3/uL (0.0-0.2); #Eosinophils 0.17 10x3/uL (0.0-0.7); #Monocytes 0.86 10x3/uL (0.11-0.59); #Neutrophils 8.92 10x3/uL (1.40-6.50); %Basophils 0.4 % (0.0-1.0); %Eosinophils 1.5 % (0.0-10.0); %Lymphocytes 9.8 % (21.0-51.0); %Monocytes 7.7 % (0.0-10.0); %Neutrophils 80.0 % (42.0-75.0); Hematocrit 30.7 % (36.0-47.0); Hemoglobin 9.9 g/dL (12.0-16.0); Mean Corpuscular Hemoglobin 26.8 pg (27.0-31.0); Mean Corpuscular Volume 83.2 fL (78.0-98.0); Platelet Count 307 10x3/uL (130-400); Red Blood Cell (RBC) Count 3.69 mill/uL (4.20-5.40); White Blood Cell (WBC) Count 11.16 10x3/uL (4.8-10.8)
[2025-01-21 04:13] LABS: Anion Gap 9 mmol/L (10-20); BUN (Urea Nitrogen) 12 mg/dL (9.8-20.1); Calc. Creatinine Clearance 148 mL/min (70-130); Calcium 7.9 mg/dL (7.8-10.44); Carbon Dioxide 22 mmol/L (23-31); Chloride 96 mmol/L (98-107); Glucose 114 mg/dL (80-115); Potassium 3.2 mmol/L (3.5-5.1); Sodium 124 mmol/L (136-145)
[2025-01-21] MEDS: Vancomycin 1 GM in Premix 1 BAG IVPB SCH (05:37)
[2025-01-21] MEDS: Lisinopril 20 MG TAB PO SCH (08:13)
[2025-01-21] MEDS: Cyclobenzaprine 10 MG TAB PO PRN (08:16)
[2025-01-21] MEDS ORDERED: Vancomycin (BATCH) 1.5 GM/300 ML BAG IVPB SCH (09:00)
[2025-01-22 03:45] LABS: Vancomycin, Random 11.2 ug/mL (See Comment)
[2025-01-22 07:47] LABS: #Basophils 0.05 10x3/uL (0.0-0.2); #Eosinophils 0.59 10x3/uL (0.0-0.7); #Monocytes 0.82 10x3/uL (0.11-0.59); #Neutrophils 6.84 10x3/uL (1.40-6.50); %Basophils 0.5 % (0.0-1.0); %Eosinophils 6.3 % (0.0-10.0); %Lymphocytes 10.7 % (21.0-51.0); %Monocytes 8.8 % (0.0-10.0); %Neutrophils 73.3 % (42.0-75.0); Hematocrit 33.2 % (36.0-47.0); Hemoglobin 10.9 g/dL (12.0-16.0); Mean Corpuscular Hemoglobin 27.2 pg (27.0-31.0); Mean Corpuscular Volume 82.8 fL (78.0-98.0); Platelet Count 311 10x3/uL (130-400); Red Blood Cell (RBC) Count 4.01 mill/uL (4.20-5.40); White Blood Cell (WBC) Count 9.34 10x3/uL (4.8-10.8)
[2025-01-22 08:04] LABS: ALT (SGPT) 12 U/L (Less than 34); AST (SGOT) 14 U/L (11-34); Albumin 2.8 g/dL (3.1-4.5); Alkaline Phosphatase 59 U/L (40-110); Anion Gap 11 mmol/L (10-20); BUN (Urea Nitrogen) 11 mg/dL (9.8-20.1); Bilirubin, Total 0.4 mg/dL (0.3-1.2); Calc. Creatinine Clearance 148 mL/min (70-130); Calcium 8.3 mg/dL (7.8-10.44); Carbon Dioxide 26 mmol/L (23-31); Chloride 98 mmol/L (98-107); Globulin 3.0 g/dL (2.4-3.5); Glucose 103 mg/dL (80-115); Potassium 4.2 mmol/L (3.5-5.1); Sodium 131 mmol/L (136-145)
[2025-01-22] MEDS ORDERED: Rocuronium Bromide 10 MG/ML (10ML VIAL) ONE (09:08)
[2025-01-22] MEDS ORDERED: fentaNYL PF 100 MCG/2 ML SYRINGE ONE (09:08)
[2025-01-22] MEDS ORDERED: PROPOFOL 20 ML ONE (09:09)
[2025-01-22] MEDS ORDERED: SUGAMMADEX SODIUM 200 MG/2 ML VIAL ONE (10:21)
[2025-01-22] MEDS ORDERED: Ondansetron PF 4 MG/2 ML Vial ONE (10:21)
[2025-01-22] MEDS: Hyaluronidase, Human Recomb. 150 UNITS/ML VIAL SC SCH (19:37)
[2025-01-23 04:44] LABS: #Basophils 0.03 10x3/uL (0.0-0.2); #Eosinophils 0.49 10x3/uL (0.0-0.7); #Monocytes 0.94 10x3/uL (0.11-0.59); #Neutrophils 8.20 10x3/uL (1.40-6.50); %Basophils 0.3 % (0.0-1.0); %Eosinophils 4.7 % (0.0-10.0); %Lymphocytes 6.5 % (21.0-51.0); %Monocytes 9.1 % (0.0-10.0); %Neutrophils 79.0 % (42.0-75.0); Hematocrit 35.1 % (36.0-47.0); Hemoglobin 11.4 g/dL (12.0-16.0); Mean Corpuscular Hemoglobin 27.0 pg (27.0-31.0); Mean Corpuscular Volume 83.2 fL (78.0-98.0); Platelet Count 323 10x3/uL (130-400); Red Blood Cell (RBC) Count 4.22 mill/uL (4.20-5.40); White Blood Cell (WBC) Count 10.37 10x3/uL (4.8-10.8)
[2025-01-23 05:02] LABS: Vancomycin, Random 16.1 ug/mL (See Comment)
[2025-01-23 05:05] LABS: ALT (SGPT) 12 U/L (Less than 34); AST (SGOT) 15 U/L (11-34); Albumin 2.8 g/dL (3.1-4.5); Alkaline Phosphatase 62 U/L (40-110); Anion Gap 13 mmol/L (10-20); BUN (Urea Nitrogen) 8 mg/dL (9.8-20.1); Bilirubin, Total 0.4 mg/dL (0.3-1.2); Calc. Creatinine Clearance 158 mL/min (70-130); Calcium 8.2 mg/dL (7.8-10.44); Carbon Dioxide 23 mmol/L (23-31); Chloride 99 mmol/L (98-107); Globulin 3.0 g/dL (2.4-3.5); Glucose 107 mg/dL (80-115); Potassium 3.7 mmol/L (3.5-5.1); Sodium 131 mmol/L (136-145)
[2025-01-23] MEDS: HYDROcodone/Acetaminophen 10/325 mg Tablet PO PRN (08:16)
[2025-01-23] MEDS: Pantoprazole 40 MG VIAL IVP SCH (22:09)
[2025-01-23] MEDS: diphenhydrAMINE 50 MG/ML VIAL IVP PRN (22:13)
[2025-01-24 04:07] LABS: #Basophils 0.03 10x3/uL (0.0-0.2); #Eosinophils 0.49 10x3/uL (0.0-0.7); #Monocytes 0.62 10x3/uL (0.11-0.59); #Neutrophils 4.79 10x3/uL (1.40-6.50); %Basophils 0.4 % (0.0-1.0); %Eosinophils 7.1 % (0.0-10.0); %Lymphocytes 14.4 % (21.0-51.0); %Monocytes 8.9 % (0.0-10.0); %Neutrophils 68.9 % (42.0-75.0); Hematocrit 31.4 % (36.0-47.0); Hemoglobin 10.0 g/dL (12.0-16.0); Mean Corpuscular Hemoglobin 27.0 pg (27.0-31.0); Mean Corpuscular Volume 84.6 fL (78.0-98.0); Platelet Count 307 10x3/uL (130-400); Red Blood Cell (RBC) Count 3.71 mill/uL (4.20-5.40); White Blood Cell (WBC) Count 6.95 10x3/uL (4.8-10.8)
[2025-01-24 04:17] LABS: ALT (SGPT) 13 U/L (Less than 34); AST (SGOT) 18 U/L (11-34); Albumin 2.7 g/dL (3.1-4.5); Alkaline Phosphatase 59 U/L (40-110); Anion Gap 11 mmol/L (10-20); BUN (Urea Nitrogen) 10 mg/dL (9.8-20.1); Bilirubin, Total 0.4 mg/dL (0.3-1.2); Calc. Creatinine Clearance 139 mL/min (70-130); Calcium 8.3 mg/dL (7.8-10.44); Carbon Dioxide 28 mmol/L (23-31); Chloride 99 mmol/L (98-107); Globulin 2.9 g/dL (2.4-3.5); Glucose 103 mg/dL (80-115); Potassium 4.1 mmol/L (3.5-5.1); Sodium 134 mmol/L (136-145)
[2025-01-24] MEDS ORDERED: Iopamidol 370 76% 100 ML VIAL ONE (09:37)
[2025-01-24] MEDS ORDERED: [UNRECOGNIZED DRUG - REMARK] IVPB PRN (11:16)
[2025-01-24] MEDS ORDERED: Lidocaine 1% (PF) 30 ML VIAL ONE (11:27)
[2025-01-24] MEDS ORDERED: Lidocaine 1% PF 5 ML VIAL ONE (15:37)
[2025-01-24] MEDS ORDERED: Sodium Bicarbonate 2.5 MEQ/5 ML SDV ONE (15:37)
[2025-01-24 21:48] LABS: Gentamicin, Random 7.2 ug/mL (See Comment)
[2025-01-25 06:27] LABS: #Basophils 0.03 10x3/uL (0.0-0.2); #Eosinophils 0.42 10x3/uL (0.0-0.7); #Monocytes 0.61 10x3/uL (0.11-0.59); #Neutrophils 6.32 10x3/uL (1.40-6.50); %Basophils 0.4 % (0.0-1.0); %Eosinophils 5.2 % (0.0-10.0); %Lymphocytes 9.1 % (21.0-51.0); %Monocytes 7.5 % (0.0-10.0); %Neutrophils 77.6 % (42.0-75.0); Hematocrit 33.1 % (36.0-47.0); Hemoglobin 10.6 g/dL (12.0-16.0); Mean Corpuscular Hemoglobin 26.8 pg (27.0-31.0); Mean Corpuscular Volume 83.6 fL (78.0-98.0); Platelet Count 279 10x3/uL (130-400); Red Blood Cell (RBC) Count 3.96 mill/uL (4.20-5.40); White Blood Cell (WBC) Count 8.14 10x3/uL (4.8-10.8)
[2025-01-25 06:41] LABS: ALT (SGPT) 16 U/L (Less than 34); AST (SGOT) 20 U/L (11-34); Albumin 2.7 g/dL (3.1-4.5); Alkaline Phosphatase 61 U/L (40-110); Anion Gap 14 mmol/L (10-20); BUN (Urea Nitrogen) 14 mg/dL (9.8-20.1); Bilirubin, Total 0.4 mg/dL (0.3-1.2); Calc. Creatinine Clearance 160 mL/min (70-130); Calcium 8.3 mg/dL (7.8-10.44); Carbon Dioxide 23 mmol/L (23-31); Chloride 99 mmol/L (98-107); Globulin 3.1 g/dL (2.4-3.5); Glucose 98 mg/dL (80-115); Potassium 3.4 mmol/L (3.5-5.1); Sodium 133 mmol/L (136-145)
[2025-01-26 05:00] LABS: #Basophils Less than 0.03 10x3/uL (0.0-0.2); #Eosinophils 0.63 10x3/uL (0.0-0.7); #Monocytes 0.52 10x3/uL (0.11-0.59); #Neutrophils 4.79 10x3/uL (1.40-6.50); %Basophils 0.3 % (0.0-1.0); %Eosinophils 9.2 % (0.0-10.0); %Lymphocytes 13.1 % (21.0-51.0); %Monocytes 7.6 % (0.0-10.0); %Neutrophils 69.5 % (42.0-75.0); Hematocrit 31.2 % (36.0-47.0); Hemoglobin 9.9 g/dL (12.0-16.0); Mean Corpuscular Hemoglobin 27.0 pg (27.0-31.0); Mean Corpuscular Volume 85.2 fL (78.0-98.0); Platelet Count 225 10x3/uL (130-400); Red Blood Cell (RBC) Count 3.66 mill/uL (4.20-5.40); White Blood Cell (WBC) Count 6.88 10x3/uL (4.8-10.8)
[2025-01-26 05:18] LABS: ALT (SGPT) 14 U/L (Less than 34); AST (SGOT) 14 U/L (11-34); Albumin 2.6 g/dL (3.1-4.5); Alkaline Phosphatase 60 U/L (40-110); Anion Gap 11 mmol/L (10-20); BUN (Urea Nitrogen) 11 mg/dL (9.8-20.1); Bilirubin, Total 0.4 mg/dL (0.3-1.2); Calc. Creatinine Clearance 147 mL/min (70-130); Calcium 8.2 mg/dL (7.8-10.44); Carbon Dioxide 23 mmol/L (23-31); Chloride 102 mmol/L (98-107); Globulin 3.0 g/dL (2.4-3.5); Glucose 99 mg/dL (80-115); Potassium 3.4 mmol/L (3.5-5.1); Sodium 133 mmol/L (136-145)
[2025-01-26 10:50] LABS: Gentamicin, Random 3.8 ug/mL (See Comment)
[2025-01-27 03:38] LABS: #Basophils 0.05 10x3/uL (0.0-0.2); #Eosinophils 0.72 10x3/uL (0.0-0.7); #Monocytes 0.57 10x3/uL (0.11-0.59); #Neutrophils 5.01 10x3/uL (1.40-6.50); %Basophils 0.7 % (0.0-1.0); %Eosinophils 9.8 % (0.0-10.0); %Lymphocytes 13.5 % (21.0-51.0); %Monocytes 7.7 % (0.0-10.0); %Neutrophils 68.0 % (42.0-75.0); Hematocrit 31.0 % (36.0-47.0); Hemoglobin 9.8 g/dL (12.0-16.0); Mean Corpuscular Hemoglobin 26.3 pg (27.0-31.0); Mean Corpuscular Volume 83.3 fL (78.0-98.0); Platelet Count 247 10x3/uL (130-400); Red Blood Cell (RBC) Count 3.72 mill/uL (4.20-5.40); White Blood Cell (WBC) Count 7.36 10x3/uL (4.8-10.8)
[2025-01-27 03:54] LABS: ALT (SGPT) 13 U/L (Less than 34); AST (SGOT) 14 U/L (11-34); Albumin 2.7 g/dL (3.1-4.5); Alkaline Phosphatase 60 U/L (40-110); Anion Gap 10 mmol/L (10-20); BUN (Urea Nitrogen) 8 mg/dL (9.8-20.1); Bilirubin, Total 0.3 mg/dL (0.3-1.2); Calc. Creatinine Clearance 150 mL/min (70-130); Calcium 8.2 mg/dL (7.8-10.44); Carbon Dioxide 23 mmol/L (23-31); Chloride 102 mmol/L (98-107); Globulin 3.0 g/dL (2.4-3.5); Glucose 104 mg/dL (80-115); Potassium 3.2 mmol/L (3.5-5.1); Sodium 132 mmol/L (136-145)
[2025-01-28 05:03] LABS: #Basophils 0.04 10x3/uL (0.0-0.2); #Eosinophils 0.73 10x3/uL (0.0-0.7); #Monocytes 0.50 10x3/uL (0.11-0.59); #Neutrophils 5.24 10x3/uL (1.40-6.50); %Basophils 0.5 % (0.0-1.0); %Eosinophils 9.8 % (0.0-10.0); %Lymphocytes 11.8 % (21.0-51.0); %Monocytes 6.7 % (0.0-10.0); %Neutrophils 70.5 % (42.0-75.0); Hematocrit 30.6 % (36.0-47.0); Hemoglobin 10.0 g/dL (12.0-16.0); Mean Corpuscular Hemoglobin 27.5 pg (27.0-31.0); Mean Corpuscular Volume 84.3 fL (78.0-98.0); Platelet Count 248 10x3/uL (130-400); Red Blood Cell (RBC) Count 3.63 mill/uL (4.20-5.40); White Blood Cell (WBC) Count 7.44 10x3/uL (4.8-10.8)
[2025-01-28 05:23] LABS: ALT (SGPT) 13 U/L (Less than 34); AST (SGOT) 14 U/L (11-34); Albumin 2.8 g/dL (3.1-4.5); Alkaline Phosphatase 61 U/L (40-110); Anion Gap 14 mmol/L (10-20); BUN (Urea Nitrogen) 9 mg/dL (9.8-20.1); Bilirubin, Total 0.4 mg/dL (0.3-1.2); Calc. Creatinine Clearance 155 mL/min (70-130); Calcium 8.4 mg/dL (7.8-10.44); Carbon Dioxide 22 mmol/L (23-31); Chloride 103 mmol/L (98-107); Globulin 3.1 g/dL (2.4-3.5); Glucose 104 mg/dL (80-115); Potassium 3.8 mmol/L (3.5-5.1); Sodium 135 mmol/L (136-145)
[2025-01-29 06:02] LABS: #Basophils 0.04 10x3/uL (0.0-0.2); #Eosinophils 0.89 10x3/uL (0.0-0.7); #Monocytes 0.66 10x3/uL (0.11-0.59); #Neutrophils 4.89 10x3/uL (1.40-6.50); %Basophils 0.5 % (0.0-1.0); %Eosinophils 12.0 % (0.0-10.0); %Lymphocytes 12.4 % (21.0-51.0); %Monocytes 8.9 % (0.0-10.0); %Neutrophils 65.7 % (42.0-75.0); Hematocrit 37.0 % (36.0-47.0); Hemoglobin 11.6 g/dL (12.0-16.0); Mean Corpuscular Hemoglobin 26.5 pg (27.0-31.0); Mean Corpuscular Volume 84.5 fL (78.0-98.0); Platelet Count 234 10x3/uL (130-400); Red Blood Cell (RBC) Count 4.38 mill/uL (4.20-5.40); White Blood Cell (WBC) Count 7.44 10x3/uL (4.8-10.8)
[2025-01-29 06:28] LABS: ALT (SGPT) 15 U/L (Less than 34); AST (SGOT) 19 U/L (11-34); Albumin 3.0 g/dL (3.1-4.5); Alkaline Phosphatase 65 U/L (40-110); Anion Gap 15 mmol/L (10-20); BUN (Urea Nitrogen) 10 mg/dL (9.8-20.1); Bilirubin, Total 0.4 mg/dL (0.3-1.2); Calc. Creatinine Clearance 128 mL/min (70-130); Calcium 8.6 mg/dL (7.8-10.44); Carbon Dioxide 21 mmol/L (23-31); Chloride 102 mmol/L (98-107); Globulin 3.4 g/dL (2.4-3.5); Glucose 94 mg/dL (80-115); Potassium 3.8 mmol/L (3.5-5.1); Sodium 134 mmol/L (136-145)
[2025-01-29 13:55] LABS: Gentamicin, Random 2.3 ug/mL (See Comment)
[2025-01-30 04:57] LABS: #Basophils 0.04 10x3/uL (0.0-0.2); #Eosinophils 0.88 10x3/uL (0.0-0.7); #Monocytes 0.55 10x3/uL (0.11-0.59); #Neutrophils 5.00 10x3/uL (1.40-6.50); %Basophils 0.5 % (0.0-1.0); %Eosinophils 11.6 % (0.0-10.0); %Lymphocytes 14.4 % (21.0-51.0); %Monocytes 7.2 % (0.0-10.0); %Neutrophils 65.9 % (42.0-75.0); Hematocrit 32.7 % (36.0-47.0); Hemoglobin 10.6 g/dL (12.0-16.0); Mean Corpuscular Hemoglobin 27.0 pg (27.0-31.0); Mean Corpuscular Volume 83.2 fL (78.0-98.0); Platelet Count 215 10x3/uL (130-400); Red Blood Cell (RBC) Count 3.93 mill/uL (4.20-5.40); White Blood Cell (WBC) Count 7.59 10x3/uL (4.8-10.8)
[2025-01-30 05:21] LABS: ALT (SGPT) 14 U/L (Less than 34); AST (SGOT) 17 U/L (11-34); Albumin 2.9 g/dL (3.1-4.5); Alkaline Phosphatase 62 U/L (40-110); Anion Gap 11 mmol/L (10-20); BUN (Urea Nitrogen) 10 mg/dL (9.8-20.1); Bilirubin, Total 0.4 mg/dL (0.3-1.2); Calc. Creatinine Clearance 114 mL/min (70-130); Calcium 8.3 mg/dL (7.8-10.44); Carbon Dioxide 24 mmol/L (23-31); Chloride 101 mmol/L (98-107); Globulin 3.1 g/dL (2.4-3.5); Glucose 108 mg/dL (80-115); Potassium 4.0 mmol/L (3.5-5.1); Sodium 132 mmol/L (136-145)
[2025-01-31 03:49] LABS: #Basophils 0.06 10x3/uL (0.0-0.2); #Eosinophils 0.83 10x3/uL (0.0-0.7); #Monocytes 0.55 10x3/uL (0.11-0.59); #Neutrophils 4.11 10x3/uL (1.40-6.50); %Basophils 0.9 % (0.0-1.0); %Eosinophils 12.5 % (0.0-10.0); %Lymphocytes 15.7 % (21.0-51.0); %Monocytes 8.3 % (0.0-10.0); %Neutrophils 62.0 % (42.0-75.0); Hematocrit 31.7 % (36.0-47.0); Hemoglobin 10.2 g/dL (12.0-16.0); Mean Corpuscular Hemoglobin 26.7 pg (27.0-31.0); Mean Corpuscular Volume 83.0 fL (78.0-98.0); Platelet Count 216 10x3/uL (130-400); Red Blood Cell (RBC) Count 3.82 mill/uL (4.20-5.40); White Blood Cell (WBC) Count 6.63 10x3/uL (4.8-10.8)
[2025-01-31 04:07] LABS: ALT (SGPT) 12 U/L (Less than 34); AST (SGOT) 18 U/L (11-34); Albumin 2.9 g/dL (3.1-4.5); Alkaline Phosphatase 66 U/L (40-110); Anion Gap 10 mmol/L (10-20); BUN (Urea Nitrogen) 11 mg/dL (9.8-20.1); Bilirubin, Total 0.4 mg/dL (0.3-1.2); Calc. Creatinine Clearance 114 mL/min (70-130); Calcium 8.4 mg/dL (7.8-10.44); Carbon Dioxide 24 mmol/L (23-31); Chloride 101 mmol/L (98-107); Globulin 3.2 g/dL (2.4-3.5); Glucose 103 mg/dL (80-115); Potassium 3.4 mmol/L (3.5-5.1); Sodium 132 mmol/L (136-145)
[2025-02-01 05:24] LABS: #Basophils 0.06 10x3/uL (0.0-0.2); #Eosinophils 0.77 10x3/uL (0.0-0.7); #Monocytes 0.57 10x3/uL (0.11-0.59); #Neutrophils 4.08 10x3/uL (1.40-6.50); %Basophils 0.9 % (0.0-1.0); %Eosinophils 11.8 % (0.0-10.0); %Lymphocytes 15.4 % (21.0-51.0); %Monocytes 8.8 % (0.0-10.0); %Neutrophils 62.8 % (42.0-75.0); Hematocrit 32.7 % (36.0-47.0); Hemoglobin 10.4 g/dL (12.0-16.0); Mean Corpuscular Hemoglobin 26.9 pg (27.0-31.0); Mean Corpuscular Volume 84.5 fL (78.0-98.0); Platelet Count 226 10x3/uL (130-400); Red Blood Cell (RBC) Count 3.87 mill/uL (4.20-5.40); White Blood Cell (WBC) Count 6.50 10x3/uL (4.8-10.8)
[2025-02-01 05:56] LABS: ALT (SGPT) 14 U/L (Less than 34); AST (SGOT) 19 U/L (11-34); Albumin 2.9 g/dL (3.1-4.5); Alkaline Phosphatase 70 U/L (40-110); Anion Gap 12 mmol/L (10-20); BUN (Urea Nitrogen) 13 mg/dL (9.8-20.1); Bilirubin, Total 0.4 mg/dL (0.3-1.2); Calc. Creatinine Clearance 84 mL/min (70-130); Calcium 8.7 mg/dL (7.8-10.44); Carbon Dioxide 22 mmol/L (23-31); Chloride 103 mmol/L (98-107); Globulin 3.4 g/dL (2.4-3.5); Glucose 104 mg/dL (80-115); Potassium 3.9 mmol/L (3.5-5.1); Sodium 133 mmol/L (136-145)
[2025-02-01] MEDS: Gabapentin 300 MG CAP PO SCH (10:05)
[2025-02-01 10:50] LABS: Gentamicin, Random 5.9 ug/mL (See Comment)
[2025-02-02 03:45] LABS: #Basophils 0.06 10x3/uL (0.0-0.2); #Eosinophils 0.72 10x3/uL (0.0-0.7); #Monocytes 0.58 10x3/uL (0.11-0.59); #Neutrophils 3.82 10x3/uL (1.40-6.50); %Basophils 1.0 % (0.0-1.0); %Eosinophils 11.8 % (0.0-10.0); %Lymphocytes 14.6 % (21.0-51.0); %Monocytes 9.5 % (0.0-10.0); %Neutrophils 62.6 % (42.0-75.0); Hematocrit 33.0 % (36.0-47.0); Hemoglobin 10.3 g/dL (12.0-16.0); Mean Corpuscular Hemoglobin 26.6 pg (27.0-31.0); Mean Corpuscular Volume 85.3 fL (78.0-98.0); Platelet Count 208 10x3/uL (130-400); Red Blood Cell (RBC) Count 3.87 mill/uL (4.20-5.40); White Blood Cell (WBC) Count 6.10 10x3/uL (4.8-10.8)
[2025-02-02 04:00] LABS: ALT (SGPT) 16 U/L (Less than 34); AST (SGOT) 20 U/L (11-34); Albumin 3.0 g/dL (3.1-4.5); Alkaline Phosphatase 73 U/L (40-110); Anion Gap 12 mmol/L (10-20); BUN (Urea Nitrogen) 23 mg/dL (9.8-20.1); Bilirubin, Total 0.4 mg/dL (0.3-1.2); Calc. Creatinine Clearance 69 mL/min (70-130); Calcium 8.7 mg/dL (7.8-10.44); Carbon Dioxide 23 mmol/L (23-31); Chloride 102 mmol/L (98-107); Globulin 3.3 g/dL (2.4-3.5); Glucose 105 mg/dL (80-115); Potassium 3.8 mmol/L (3.5-5.1); Sodium 133 mmol/L (136-145)
[2025-02-02 05:38] VITALS: BMI 36.6
[2025-02-02 13:27] LABS: Gentamicin, Trough 1.1 ug/mL (See Comment)
[2025-02-02] MEDS: Lidocaine 1% (PF) 30 ML VIAL ONE (16:33)
[2025-02-03 04:51] LABS: #Basophils 0.05 10x3/uL (0.0-0.2); #Eosinophils 0.74 10x3/uL (0.0-0.7); #Monocytes 0.61 10x3/uL (0.11-0.59); #Neutrophils 4.95 10x3/uL (1.40-6.50); %Basophils 0.7 % (0.0-1.0); %Eosinophils 10.3 % (0.0-10.0); %Lymphocytes 11.3 % (21.0-51.0); %Monocytes 8.5 % (0.0-10.0); %Neutrophils 68.8 % (42.0-75.0); Hematocrit 32.0 % (36.0-47.0); Hemoglobin 10.2 g/dL (12.0-16.0); Mean Corpuscular Hemoglobin 26.8 pg (27.0-31.0); Mean Corpuscular Volume 84.0 fL (78.0-98.0); Platelet Count 208 10x3/uL (130-400); Red Blood Cell (RBC) Count 3.81 mill/uL (4.20-5.40); White Blood Cell (WBC) Count 7.19 10x3/uL (4.8-10.8)
[2025-02-03 05:12] LABS: ALT (SGPT) 15 U/L (Less than 34); AST (SGOT) 20 U/L (11-34); Albumin 2.8 g/dL (3.1-4.5); Alkaline Phosphatase 73 U/L (40-110); Anion Gap 12 mmol/L (10-20); BUN (Urea Nitrogen) 34 mg/dL (9.8-20.1); Bilirubin, Total 0.3 mg/dL (0.3-1.2); Calc. Creatinine Clearance 53 mL/min (70-130); Calcium 8.8 mg/dL (7.8-10.44); Carbon Dioxide 22 mmol/L (23-31); Chloride 101 mmol/L (98-107); Globulin 3.3 g/dL (2.4-3.5); Glucose 107 mg/dL (80-115); Potassium 3.6 mmol/L (3.5-5.1); Sodium 131 mmol/L (136-145)
[2025-02-03 13:22] LABS: Anion Gap 13 mmol/L (10-20); BUN (Urea Nitrogen) 35 mg/dL (9.8-20.1); Calc. Creatinine Clearance 54 mL/min (70-130); Calcium 8.7 mg/dL (7.8-10.44); Carbon Dioxide 20 mmol/L (23-31); Chloride 101 mmol/L (98-107); Glucose 83 mg/dL (80-115); Potassium 3.8 mmol/L (3.5-5.1); Sodium 130 mmol/L (136-145)
[2025-02-04 01:11] LABS: Gentamicin, Trough 1.7 ug/mL (See Comment)
[2025-02-04 04:36] LABS: #Basophils 0.05 10x3/uL (0.0-0.2); #Eosinophils 0.67 10x3/uL (0.0-0.7); #Monocytes 0.57 10x3/uL (0.11-0.59); #Neutrophils 4.50 10x3/uL (1.40-6.50); %Basophils 0.7 % (0.0-1.0); %Eosinophils 10.0 % (0.0-10.0); %Lymphocytes 12.7 % (21.0-51.0); %Monocytes 8.5 % (0.0-10.0); %Neutrophils 67.5 % (42.0-75.0); Hematocrit 30.5 % (36.0-47.0); Hemoglobin 9.6 g/dL (12.0-16.0); Mean Corpuscular Hemoglobin 26.4 pg (27.0-31.0); Mean Corpuscular Volume 84.0 fL (78.0-98.0); Platelet Count 200 10x3/uL (130-400); Red Blood Cell (RBC) Count 3.63 mill/uL (4.20-5.40); White Blood Cell (WBC) Count 6.68 10x3/uL (4.8-10.8)
[2025-02-04 04:54] LABS: ALT (SGPT) 14 U/L (Less than 34); AST (SGOT) 19 U/L (11-34); Albumin 2.7 g/dL (3.1-4.5); Alkaline Phosphatase 74 U/L (40-110); Anion Gap 12 mmol/L (10-20); BUN (Urea Nitrogen) 40 mg/dL (9.8-20.1); Bilirubin, Total 0.2 mg/dL (0.3-1.2); Calc. Creatinine Clearance 45 mL/min (70-130); Calcium 8.9 mg/dL (7.8-10.44); Carbon Dioxide 22 mmol/L (23-31); Chloride 104 mmol/L (98-107); Globulin 3.2 g/dL (2.4-3.5); Glucose 100 mg/dL (80-115); Potassium 3.6 mmol/L (3.5-5.1); Sodium 134 mmol/L (136-145)
[2025-02-04] MEDS: metFORMIN 500 MG TAB PO SCH (20:46)
[2025-02-05 04:54] LABS: #Basophils 0.07 10x3/uL (0.0-0.2); #Eosinophils 0.52 10x3/uL (0.0-0.7); #Monocytes 0.58 10x3/uL (0.11-0.59); #Neutrophils 4.85 10x3/uL (1.40-6.50); %Basophils 1.0 % (0.0-1.0); %Eosinophils 7.4 % (0.0-10.0); %Lymphocytes 13.3 % (21.0-51.0); %Monocytes 8.3 % (0.0-10.0); %Neutrophils 69.3 % (42.0-75.0); Hematocrit 30.6 % (36.0-47.0); Hemoglobin 9.7 g/dL (12.0-16.0); Mean Corpuscular Hemoglobin 26.6 pg (27.0-31.0); Mean Corpuscular Volume 84.1 fL (78.0-98.0); Platelet Count 169 10x3/uL (130-400); Red Blood Cell (RBC) Count 3.64 mill/uL (4.20-5.40); White Blood Cell (WBC) Count 7.00 10x3/uL (4.8-10.8)
[2025-02-05 05:32] LABS: ALT (SGPT) Less than 7 U/L (Less than 34); AST (SGOT) 22 U/L (11-34); Albumin 2.9 g/dL (3.1-4.5); Alkaline Phosphatase 71 U/L (40-110); Anion Gap 13 mmol/L (10-20); BUN (Urea Nitrogen) 47 mg/dL (9.8-20.1); Bilirubin, Total 0.3 mg/dL (0.3-1.2); Calc. Creatinine Clearance 38 mL/min (70-130); Calcium 8.7 mg/dL (7.8-10.44); Carbon Dioxide 19 mmol/L (23-31); Chloride 102 mmol/L (98-107); Globulin 3.4 g/dL (2.4-3.5); Glucose 93 mg/dL (80-115); Potassium 3.7 mmol/L (3.5-5.1); Sodium 130 mmol/L (136-145)
[2025-02-05 05:40] LABS: Gentamicin, Random 1.0 ug/mL (See Comment)
[2025-02-05 07:01] LABS: Osmolality, Urine 188 mOsm/kg (50-1200)
[2025-02-05 07:02] LABS: Sodium, Urine Less than 20 mmol/L (Not Available)
[2025-02-05] MEDS ORDERED: metFORMIN 500 MG TAB PO SCH (08:00)
[2025-02-05 10:05] LABS: Osmolality, Serum 286 mOsm/kg (280-301)
[2025-02-05] MEDS: Ciprofloxacin Lactate/D5W 400 MG in Premix 1 BAG IVPB SCH (17:22)
[2025-02-05] MEDS: Gentamicin Sulfate 100 MG in Premix 1 BAG IVPB SCH (19:29)
[2025-02-06 06:54] LABS: #Basophils 0.05 10x3/uL (0.0-0.2); #Eosinophils 0.49 10x3/uL (0.0-0.7); #Monocytes 0.63 10x3/uL (0.11-0.59); #Neutrophils 4.35 10x3/uL (1.40-6.50); %Basophils 0.8 % (0.0-1.0); %Eosinophils 7.9 % (0.0-10.0); %Lymphocytes 9.9 % (21.0-51.0); %Monocytes 10.2 % (0.0-10.0); %Neutrophils 70.2 % (42.0-75.0); Hematocrit 30.1 % (36.0-47.0); Hemoglobin 9.6 g/dL (12.0-16.0); Mean Corpuscular Hemoglobin 27.0 pg (27.0-31.0); Mean Corpuscular Volume 84.8 fL (78.0-98.0); Platelet Count 169 10x3/uL (130-400); Red Blood Cell (RBC) Count 3.55 mill/uL (4.20-5.40); White Blood Cell (WBC) Count 6.19 10x3/uL (4.8-10.8)
[2025-02-06 07:14] LABS: ALT (SGPT) 13 U/L (Less than 34); AST (SGOT) 25 U/L (11-34); Albumin 2.7 g/dL (3.1-4.5); Alkaline Phosphatase 74 U/L (40-110); Anion Gap 13 mmol/L (10-20); BUN (Urea Nitrogen) 55 mg/dL (9.8-20.1); Bilirubin, Total 0.3 mg/dL (0.3-1.2); Calc. Creatinine Clearance 33 mL/min (70-130); Calcium 8.3 mg/dL (7.8-10.44); Carbon Dioxide 22 mmol/L (23-31); Chloride 107 mmol/L (98-107); Globulin 3.2 g/dL (2.4-3.5); Glucose 97 mg/dL (80-115); Potassium 3.9 mmol/L (3.5-5.1); Sodium 138 mmol/L (136-145)
[2025-02-06] MEDS ORDERED: Gentamicin Sulfate 100 MG in Premix 1 BAG IVPB SCH (11:00)
[2025-02-06] MEDS: Ciprofloxacin Lactate/D5W 400 MG in Premix 1 BAG IVPB SCH (15:46)
[2025-02-06] MEDS ORDERED: Ciprofloxacin Lactate/D5W 200 MG in Premix 1 BAG IVPB SCH (16:00)
[2025-02-06] MEDS: Gabapentin 300 MG CAP PO SCH (20:47)
[2025-02-07] MEDS: Acetaminophen 325 MG TAB PO PRN (04:04)
[2025-02-07 06:06] LABS: #Basophils 0.05 10x3/uL (0.0-0.2); #Eosinophils 0.42 10x3/uL (0.0-0.7); #Monocytes 0.62 10x3/uL (0.11-0.59); #Neutrophils 3.81 10x3/uL (1.40-6.50); %Basophils 0.9 % (0.0-1.0); %Eosinophils 7.5 % (0.0-10.0); %Lymphocytes 11.8 % (21.0-51.0); %Monocytes 11.1 % (0.0-10.0); %Neutrophils 68.0 % (42.0-75.0); Hematocrit 27.5 % (36.0-47.0); Hemoglobin 8.5 g/dL (12.0-16.0); Mean Corpuscular Hemoglobin 26.1 pg (27.0-31.0); Mean Corpuscular Volume 84.4 fL (78.0-98.0); Platelet Count 171 10x3/uL (130-400); Red Blood Cell (RBC) Count 3.26 mill/uL (4.20-5.40); White Blood Cell (WBC) Count 5.60 10x3/uL (4.8-10.8)
[2025-02-07 06:40] LABS: ALT (SGPT) 13 U/L (Less than 34); AST (SGOT) 25 U/L (11-34); Albumin 2.7 g/dL (3.1-4.5); Alkaline Phosphatase 73 U/L (40-110); Anion Gap 12 mmol/L (10-20); BUN (Urea Nitrogen) 53 mg/dL (9.8-20.1); Bilirubin, Total 0.2 mg/dL (0.3-1.2); Calc. Creatinine Clearance 32 mL/min (70-130); Calcium 8.3 mg/dL (7.8-10.44); Carbon Dioxide 22 mmol/L (23-31); Chloride 105 mmol/L (98-107); Globulin 2.9 g/dL (2.4-3.5); Glucose 120 mg/dL (80-115); Potassium 3.7 mmol/L (3.5-5.1); Sodium 135 mmol/L (136-145)
[2025-02-07] MEDS: Lidocaine 1% (PF) 30 ML VIAL ONE (09:13)
[2025-02-07] MEDS: Lidocaine 1% w/Epinephrine 1:100K 20 ML VIAL ONE (09:14)
[2025-02-07] MEDS: Ciprofloxacin Lactate/D5W 400 MG in Premix 1 BAG IVPB SCH (16:34)
[2025-02-08 10:44] LABS: #Basophils 0.06 10x3/uL (0.0-0.2); #Eosinophils 0.38 10x3/uL (0.0-0.7); #Monocytes 0.57 10x3/uL (0.11-0.59); #Neutrophils 4.30 10x3/uL (1.40-6.50); %Basophils 1.0 % (0.0-1.0); %Eosinophils 6.2 % (0.0-10.0); %Lymphocytes 13.1 % (21.0-51.0); %Monocytes 9.3 % (0.0-10.0); %Neutrophils 69.8 % (42.0-75.0); Hematocrit 29.6 % (36.0-47.0); Hemoglobin 9.4 g/dL (12.0-16.0); Mean Corpuscular Hemoglobin 26.9 pg (27.0-31.0); Mean Corpuscular Volume 84.8 fL (78.0-98.0); Platelet Count 185 10x3/uL (130-400); Red Blood Cell (RBC) Count 3.49 mill/uL (4.20-5.40); White Blood Cell (WBC) Count 6.16 10x3/uL (4.8-10.8)
[2025-02-08 10:53] VITALS: BMI 38.8
[2025-02-08 11:09] LABS: ALT (SGPT) 15 U/L (Less than 34); AST (SGOT) 32 U/L (11-34); Albumin 3.1 g/dL (3.1-4.5); Alkaline Phosphatase 82 U/L (40-110); Anion Gap 12 mmol/L (10-20); BUN (Urea Nitrogen) 47 mg/dL (9.8-20.1); Bilirubin, Total 0.2 mg/dL (0.3-1.2); Calc. Creatinine Clearance 33 mL/min (70-130); Calcium 8.2 mg/dL (7.8-10.44); Carbon Dioxide 22 mmol/L (23-31); Chloride 103 mmol/L (98-107); Globulin 3.3 g/dL (2.4-3.5); Glucose 146 mg/dL (80-115); Potassium 3.8 mmol/L (3.5-5.1); Sodium 133 mmol/L (136-145)
[2025-02-09 05:01] LABS: #Basophils 0.04 10x3/uL (0.0-0.2); #Eosinophils 0.34 10x3/uL (0.0-0.7); #Monocytes 0.68 10x3/uL (0.11-0.59); #Neutrophils 4.46 10x3/uL (1.40-6.50); %Basophils 0.6 % (0.0-1.0); %Eosinophils 5.2 % (0.0-10.0); %Lymphocytes 14.2 % (21.0-51.0); %Monocytes 10.5 % (0.0-10.0); %Neutrophils 68.6 % (42.0-75.0); Hematocrit 24.0 % (36.0-47.0); Hemoglobin 7.5 g/dL (12.0-16.0); Mean Corpuscular Hemoglobin 26.8 pg (27.0-31.0); Mean Corpuscular Volume 85.7 fL (78.0-98.0); Platelet Count 138 10x3/uL (130-400); Red Blood Cell (RBC) Count 2.80 mill/uL (4.20-5.40); White Blood Cell (WBC) Count 6.50 10x3/uL (4.8-10.8)
[2025-02-09 05:48] LABS: ALT (SGPT) 11 U/L (Less than 34); AST (SGOT) 23 U/L (11-34); Albumin 2.3 g/dL (3.1-4.5); Alkaline Phosphatase 58 U/L (40-110); Anion Gap 11 mmol/L (10-20); BUN (Urea Nitrogen) 38 mg/dL (9.8-20.1); Bilirubin, Total 0.2 mg/dL (0.3-1.2); Calc. Creatinine Clearance 40 mL/min (70-130); Calcium 6.2 mg/dL (7.8-10.44); Carbon Dioxide 16 mmol/L (23-31); Chloride 111 mmol/L (98-107); Globulin 2.4 g/dL (2.4-3.5); Glucose 82 mg/dL (80-115); Potassium 2.7 mmol/L (3.5-5.1); Sodium 135 mmol/L (136-145)
[2025-02-09 07:07] LABS: Magnesium 1.6 mg/dL (1.6-2.6)
[2025-02-09] MEDS: Potassium Chloride 20 MEQ in Premix 1 BAG IVPB SCH ×2 (08:14→10:57)
[2025-02-09] MEDS: CALCIUM GLUC 1 GM/NS 50 ML 1 GM in Premix 1 BAG IVPB SCH ×2 (09:37→09:45)
[2025-02-09] MEDS: Magnesium 2 GM/50 ML(in water) 2 GM in Premix 1 BAG IVPB SCH (10:57)
[2025-02-09 12:12] LABS: Hematocrit 24.4 % (36.0-47.0); Hemoglobin 7.7 g/dL (12.0-16.0)
[2025-02-09 12:33] LABS: Anion Gap 16 mmol/L (10-20); BUN (Urea Nitrogen) 55 mg/dL (9.8-20.1); Calc. Creatinine Clearance 28 mL/min (70-130); Calcium 8.1 mg/dL (7.8-10.44); Carbon Dioxide 17 mmol/L (23-31); Chloride 99 mmol/L (98-107); Glucose 124 mg/dL (80-115); Potassium 4.1 mmol/L (3.5-5.1); Sodium 128 mmol/L (136-145)
[2025-02-09 14:52] LABS: Osmolality, Serum 291 mOsm/kg (280-301)
[2025-02-09 16:46] LABS: Osmolality, Urine 220 mOsm/kg (50-1200)
[2025-02-09] MEDS: Pantoprazole 40 MG DR.TAB PO SCH (21:02)
[2025-02-10 05:34] LABS: #Basophils 0.05 10x3/uL (0.0-0.2); #Eosinophils 0.62 10x3/uL (0.0-0.7); #Monocytes 0.75 10x3/uL (0.11-0.59); #Neutrophils 4.24 10x3/uL (1.40-6.50); %Basophils 0.7 % (0.0-1.0); %Eosinophils 9.0 % (0.0-10.0); %Lymphocytes 17.3 % (21.0-51.0); %Monocytes 10.9 % (0.0-10.0); %Neutrophils 61.5 % (42.0-75.0); Hematocrit 27.0 % (36.0-47.0); Hemoglobin 8.5 g/dL (12.0-16.0); Mean Corpuscular Hemoglobin 26.5 pg (27.0-31.0); Mean Corpuscular Volume 84.1 fL (78.0-98.0); Platelet Count 175 10x3/uL (130-400); Red Blood Cell (RBC) Count 3.21 mill/uL (4.20-5.40); White Blood Cell (WBC) Count 6.89 10x3/uL (4.8-10.8)
[2025-02-10 06:00] LABS: ALT (SGPT) 12 U/L (Less than 34); AST (SGOT) 30 U/L (11-34); Albumin 3.0 g/dL (3.1-4.5); Alkaline Phosphatase 73 U/L (40-110); Anion Gap 15 mmol/L (10-20); BUN (Urea Nitrogen) 50 mg/dL (9.8-20.1); Bilirubin, Total 0.4 mg/dL (0.3-1.2); Calc. Creatinine Clearance 27 mL/min (70-130); Calcium 8.0 mg/dL (7.8-10.44); Carbon Dioxide 19 mmol/L (23-31); Chloride 102 mmol/L (98-107); Globulin 3.1 g/dL (2.4-3.5); Glucose 96 mg/dL (80-115); Magnesium 2.7 mg/dL (1.6-2.6); Potassium 4.0 mmol/L (3.5-5.1); Sodium 132 mmol/L (136-145)
[2025-02-10] MEDS: Apixaban 5 MG TAB PO SCH ×2 (12:25→20:48)
[2025-02-10] MEDS: Albumin 25% 25 GM (100 mL) BOT IVPB SCH (16:40)
[2025-02-11] MEDS: Albumin 25% 25 GM (100 mL) BOT IVPB SCH (03:13)
[2025-02-11 05:28] LABS: #Basophils Less than 0.03 10x3/uL (0.0-0.2); #Eosinophils 0.42 10x3/uL (0.0-0.7); #Monocytes 0.48 10x3/uL (0.11-0.59); #Neutrophils 3.54 10x3/uL (1.40-6.50); %Basophils 0.4 % (0.0-1.0); %Eosinophils 8.3 % (0.0-10.0); %Lymphocytes 10.5 % (21.0-51.0); %Monocytes 9.5 % (0.0-10.0); %Neutrophils 70.5 % (42.0-75.0); Hematocrit 21.6 % (36.0-47.0); Hemoglobin 6.8 g/dL (12.0-16.0); Mean Corpuscular Hemoglobin 26.5 pg (27.0-31.0); Mean Corpuscular Volume 84.0 fL (78.0-98.0); Platelet Count 179 10x3/uL (130-400); Red Blood Cell (RBC) Count 2.57 mill/uL (4.20-5.40); White Blood Cell (WBC) Count 5.03 10x3/uL (4.8-10.8)
[2025-02-11 06:02] LABS: ALT (SGPT) 10 U/L (Less than 34); AST (SGOT) 21 U/L (11-34); Albumin 3.4 g/dL (3.1-4.5); Alkaline Phosphatase 63 U/L (40-110); Anion Gap 13 mmol/L (10-20); BUN (Urea Nitrogen) 63 mg/dL (9.8-20.1); Bilirubin, Total 0.3 mg/dL (0.3-1.2); Calc. Creatinine Clearance 28 mL/min (70-130); Calcium 7.8 mg/dL (7.8-10.44); Carbon Dioxide 20 mmol/L (23-31); Chloride 104 mmol/L (98-107); Globulin 2.4 g/dL (2.4-3.5); Glucose 131 mg/dL (80-115); Potassium 3.7 mmol/L (3.5-5.1); Sodium 133 mmol/L (136-145)
[2025-02-11 09:15] LABS: Hematocrit 21.9 % (36.0-47.0); Hemoglobin 7.0 g/dL (12.0-16.0)
[2025-02-11 09:28] LABS: Iron 18 ug/dL (50-170); Iron Binding Capacity, Total 201 mcg/dL (265-497)
[2025-02-11 12:37] LABS: Hematocrit 22.8 % (36.0-47.0); Hemoglobin 7.2 g/dL (12.0-16.0)
[2025-02-11] MEDS: Ergocalciferol 1.25 MG(50,000 UNITS) CAP PO SCH (16:44)
[2025-02-11] MEDS: Sodium Ferric Gluconate 250 MG in Sodium Chloride 0.9% 250 ML 250 ML IVPB SCH (18:27)
[2025-02-11] MEDS: Apixaban 5 MG TAB PO SCH (20:00)
[2025-02-12 05:01] LABS: #Basophils 0.03 10x3/uL (0.0-0.2); #Eosinophils 0.42 10x3/uL (0.0-0.7); #Monocytes 0.53 10x3/uL (0.11-0.59); #Neutrophils 2.91 10x3/uL (1.40-6.50); %Basophils 0.6 % (0.0-1.0); %Eosinophils 9.0 % (0.0-10.0); %Lymphocytes 15.7 % (21.0-51.0); %Monocytes 11.4 % (0.0-10.0); %Neutrophils 62.7 % (42.0-75.0); Hematocrit 21.5 % (36.0-47.0); Hemoglobin 6.8 g/dL (12.0-16.0); Mean Corpuscular Hemoglobin 26.8 pg (27.0-31.0); Mean Corpuscular Volume 84.6 fL (78.0-98.0); Platelet Count 224 10x3/uL (130-400); Red Blood Cell (RBC) Count 2.54 mill/uL (4.20-5.40); White Blood Cell (WBC) Count 4.65 10x3/uL (4.8-10.8)
[2025-02-12 05:17] LABS: ALT (SGPT) 8 U/L (Less than 34); AST (SGOT) 23 U/L (11-34); Albumin 3.2 g/dL (3.1-4.5); Alkaline Phosphatase 59 U/L (40-110); Anion Gap 14 mmol/L (10-20); BUN (Urea Nitrogen) 59 mg/dL (9.8-20.1); Bilirubin, Total 0.4 mg/dL (0.3-1.2); Calc. Creatinine Clearance 31 mL/min (70-130); Calcium 7.9 mg/dL (7.8-10.44); Carbon Dioxide 21 mmol/L (23-31); Chloride 105 mmol/L (98-107); Globulin 2.4 g/dL (2.4-3.5); Glucose 92 mg/dL (80-115); Potassium 3.8 mmol/L (3.5-5.1); Sodium 136 mmol/L (136-145)
[2025-02-12] MEDS: EPOETIN ALFA-EPBX 10,000 UNITS/ML VIAL SC SCH (16:45)
[2025-02-12 18:16] LABS: Hematocrit 26.5 % (36.0-47.0); Hemoglobin 8.4 g/dL (12.0-16.0)
[2025-02-12] MEDS ORDERED: Apixaban 5 MG TAB PO SCH (21:00)
[2025-02-13 05:08] LABS: #Basophils 0.05 10x3/uL (0.0-0.2); #Eosinophils 0.56 10x3/uL (0.0-0.7); #Monocytes 0.63 10x3/uL (0.11-0.59); #Neutrophils 3.03 10x3/uL (1.40-6.50); %Basophils 1.0 % (0.0-1.0); %Eosinophils 10.8 % (0.0-10.0); %Lymphocytes 16.2 % (21.0-51.0); %Monocytes 12.2 % (0.0-10.0); %Neutrophils 58.4 % (42.0-75.0); Hematocrit 24.7 % (36.0-47.0); Hemoglobin 8.0 g/dL (12.0-16.0); Mean Corpuscular Hemoglobin 27.0 pg (27.0-31.0); Mean Corpuscular Volume 83.4 fL (78.0-98.0); Platelet Count 275 10x3/uL (130-400); Red Blood Cell (RBC) Count 2.96 mill/uL (4.20-5.40); White Blood Cell (WBC) Count 5.18 10x3/uL (4.8-10.8)
[2025-02-13 07:07] LABS: ALT (SGPT) 10 U/L (Less than 34); AST (SGOT) 26 U/L (11-34); Albumin 2.9 g/dL (3.1-4.5); Alkaline Phosphatase 58 U/L (40-110); Anion Gap 15 mmol/L (10-20); BUN (Urea Nitrogen) 53 mg/dL (9.8-20.1); Bilirubin, Total 0.4 mg/dL (0.3-1.2); Calc. Creatinine Clearance 32 mL/min (70-130); Calcium 8.2 mg/dL (7.8-10.44); Carbon Dioxide 21 mmol/L (23-31); Chloride 106 mmol/L (98-107); Globulin 2.6 g/dL (2.4-3.5); Glucose 103 mg/dL (80-115); Potassium 3.6 mmol/L (3.5-5.1); Sodium 138 mmol/L (136-145)
[2025-02-13] MEDS: Sodium Bicarbonate Tab 325 MG TAB PO SCH (09:03)
[2025-02-13] MEDS: Albumin 25% 25 GM (100 mL) BOT IVPB SCH (09:04)
[2025-02-13] MEDS ORDERED: Benzocaine/Menthol 1 LOZ LOZ PO PRN (09:07)
[2025-02-13] MEDS: Apixaban 5 MG TAB PO SCH (20:38)
[2025-02-14 06:04] LABS: ALT (SGPT) 9 U/L (Less than 34); AST (SGOT) 22 U/L (11-34); Albumin 3.5 g/dL (3.1-4.5); Alkaline Phosphatase 55 U/L (40-110); Anion Gap 14 mmol/L (10-20); BUN (Urea Nitrogen) 45 mg/dL (9.8-20.1); Bilirubin, Total 0.4 mg/dL (0.3-1.2); Calc. Creatinine Clearance 37 mL/min (70-130); Calcium 8.2 mg/dL (7.8-10.44); Carbon Dioxide 21 mmol/L (23-31); Chloride 109 mmol/L (98-107); Globulin 2.2 g/dL (2.4-3.5); Glucose 88 mg/dL (80-115); Potassium 3.5 mmol/L (3.5-5.1); Sodium 140 mmol/L (136-145)
[2025-02-14 06:40] LABS: #Basophils 0.03 10x3/uL (0.0-0.2); #Eosinophils 0.56 10x3/uL (0.0-0.7); #Monocytes 0.57 10x3/uL (0.11-0.59); #Neutrophils 3.12 10x3/uL (1.40-6.50); %Basophils 0.6 % (0.0-1.0); %Eosinophils 10.6 % (0.0-10.0); %Lymphocytes 15.6 % (21.0-51.0); %Monocytes 10.8 % (0.0-10.0); %Neutrophils 59.4 % (42.0-75.0)
[2025-02-14 08:29] LABS: Hematocrit 24.0 % (36.0-47.0); Hemoglobin 7.5 g/dL (12.0-16.0); Mean Corpuscular Hemoglobin 26.8 pg (27.0-31.0); Mean Corpuscular Volume 85.7 fL (78.0-98.0); Platelet Count 170 10x3/uL (130-400); Red Blood Cell (RBC) Count 2.80 mill/uL (4.20-5.40); White Blood Cell (WBC) Count 5.26 10x3/uL (4.8-10.8)
[2025-02-14] MEDS: Sodium Bicarbonate Tab 325 MG TAB PO SCH ×2 (08:46→21:02)
[2025-02-14] MEDS: Potassium Bicarbonate/Cit Ac 20 MEQ TAB PO SCH (11:28)
[2025-02-14 12:16] LABS: Magnesium 1.9 mg/dL (1.6-2.6)
[2025-02-15 05:00] LABS: #Basophils 0.04 10x3/uL (0.0-0.2); #Eosinophils 0.63 10x3/uL (0.0-0.7); #Monocytes 0.63 10x3/uL (0.11-0.59); #Neutrophils 3.36 10x3/uL (1.40-6.50); %Basophils 0.7 % (0.0-1.0); %Eosinophils 10.9 % (0.0-10.0); %Lymphocytes 16.8 % (21.0-51.0); %Monocytes 10.9 % (0.0-10.0); %Neutrophils 57.9 % (42.0-75.0); Hematocrit 25.2 % (36.0-47.0); Hemoglobin 7.9 g/dL (12.0-16.0); Mean Corpuscular Hemoglobin 27.1 pg (27.0-31.0); Mean Corpuscular Volume 86.3 fL (78.0-98.0); Platelet Count 298 10x3/uL (130-400); Red Blood Cell (RBC) Count 2.92 mill/uL (4.20-5.40); White Blood Cell (WBC) Count 5.79 10x3/uL (4.8-10.8)
[2025-02-15 05:22] LABS: ALT (SGPT) 10 U/L (Less than 34); AST (SGOT) 21 U/L (11-34); Albumin 3.6 g/dL (3.1-4.5); Alkaline Phosphatase 58 U/L (40-110); Anion Gap 13 mmol/L (10-20); BUN (Urea Nitrogen) 38 mg/dL (9.8-20.1); Bilirubin, Total 0.4 mg/dL (0.3-1.2); Calc. Creatinine Clearance 40 mL/min (70-130); Calcium 8.4 mg/dL (7.8-10.44); Carbon Dioxide 23 mmol/L (23-31); Chloride 108 mmol/L (98-107); Globulin 2.3 g/dL (2.4-3.5); Glucose 88 mg/dL (80-115); Potassium 3.6 mmol/L (3.5-5.1); Sodium 140 mmol/L (136-145)
[2025-02-15 08:00] VITALS: BP 163/80; TEMP 98.4
[2025-02-15] MEDS ORDERED: Mupirocin 1 GM TUBE NASAL DECOLONIZATION NASAL SCH (21:00)
[2025-02-17] MEDS ORDERED: Apixaban 5 MG TAB PO SCH (09:00)
[2025-02-18] MEDS ORDERED: Apixaban 5 MG TAB PO SCH (21:00)
== END 2025-02-15 19:35 | DRG 28 ==
LOC: ERS 12:24 → ERHOLD 13:56 → CCU 16:04 → IMCU/EMU 01-23 21:01 → SURG A 02-07 13:43
PROVIDERS: ADMIT Neurological Surgery; ATTEND Neurological Surgery
PROC: 3E03329 Introduction of Other Anti-infective into Peripheral Vein, Percutaneous Approach (ICD-10-PCS; 2025-01-20)
PROC: 00UT0KZ Supplement Spinal Meninges with Nonautologous Tissue Substitute, Open Approach (ICD-10-PCS; principal; 2025-01-23)
PROC: 02HV33Z Insertion of Infusion Device into Superior Vena Cava, Percutaneous Approach (ICD-10-PCS; 2025-01-24)
PROC: B5181ZA Fluoroscopy of Superior Vena Cava using Low Osmolar Contrast, Guidance (ICD-10-PCS; 2025-01-24)
PROC: 06H03DZ Insertion of Intraluminal Device into Inferior Vena Cava, Percutaneous Approach (ICD-10-PCS; 2025-01-24)
PROC: 3E04329 Introduction of Other Anti-infective into Central Vein, Percutaneous Approach (ICD-10-PCS; 2025-01-24)
PROC: 0T9B70Z Drainage of Bladder with Drainage Device, Via Natural or Artificial Opening (ICD-10-PCS; 2025-02-01)
PROC: 30233J1 Transfusion of Nonautologous Serum Albumin into Peripheral Vein, Percutaneous Approach (ICD-10-PCS; 2025-02-11)
PROC: 30233N1 Transfusion of Nonautologous Red Blood Cells into Peripheral Vein, Percutaneous Approach (ICD-10-PCS; 2025-02-12)
DX: G96.09 Other spinal cerebrospinal fluid leak (principal); G00.8 Other bacterial meningitis; E87.1 Hypo-osmolality and hyponatremia; I82.411 Acute embolism and thrombosis of right femoral vein; I82.491 Acute embolism and thrombosis of other specified deep vein of right lower extremity; N17.9 Acute kidney failure, unspecified; E87.21 Acute metabolic acidosis; I10 Essential (primary) hypertension; F41.9 Anxiety disorder, unspecified; E78.5 Hyperlipidemia, unspecified; E87.6 Hypokalemia; E83.51 Hypocalcemia; M48.061 Spinal stenosis, lumbar region without neurogenic claudication; E66.9 Obesity, unspecified; K59.00 Constipation, unspecified; E83.42 Hypomagnesemia; N18.9 Chronic kidney disease, unspecified; I12.9 Hypertensive chronic kidney disease with stage 1 through stage 4 chronic kidney disease, or unspecified chronic kidney disease; R60.1 Generalized edema; E11.22 Type 2 diabetes mellitus with diabetic chronic kidney disease; B96.5 Pseudomonas (aeruginosa) (mallei) (pseudomallei) as the cause of diseases classified elsewhere; E88.09 Other disorders of plasma-protein metabolism, not elsewhere classified; R13.10 Dysphagia, unspecified; D64.9 Anemia, unspecified; Z90.49 Acquired absence of other specified parts of digestive tract; Z90.710 Acquired absence of both cervix and uterus; Z98.51 Tubal ligation status; Z98.890 Other specified postprocedural states; Z98.1 Arthrodesis status; Z68.38 Body mass index [BMI] 38.0-38.9, adult
CPT/HCPCS: 36415; 36416; 36430; 36573; 37191; 71045; 76770; 80048; 80053; 80170; 80202; 82306; 82550; 82570; 82728; 83540; 83550; 83605; 83735; 83930; 83935; 84100; 84300; 85025; 86141; 86850; 86900; 86901; 87040; 87070; 87077; 87086; 87186; 87205; 93005; 93970; 94760; 96365; 96366; 96367; A4217; C1751; C1769; C1880; C1889; C1894; J0613; J0692; J0744; J1200; J1580; J1815; J2183; J2185; J2270; J2405; J2470; J2543; J2704; J2916; J3373; J3375; J3473; J3475; J3480; J7030; J7050; P9016; P9047; Q5106; Q9967